=== PATIENT | male | born 1965 | race Caucasian/White ===

== ENCOUNTER → 2018-07-10 11:38 | Outpatient (CLI) | payer BC, SELFPAY | PROVIDERS: Family Provider Family Medicine; PCP Family Medicine; Visit Provider Orthopaedic Surgery | DX: M79.641 Pain in right hand (principal) | CPT/HCPCS: 73130 ==

== ENCOUNTER → 2019-05-22 07:24 | Outpatient (CLI) | payer BC, SELFPAY ==
[2019-05-22 08:12] LABS: Anion Gap 6 (5-15); BUN 21 mg/dL (7-18); BUN/Creat Ratio 16.7 RATIO (10-20); Calcium,Total 8.4 mg/dL (8.5-10.1); Chloride 110 mmol/L (98-107); Cholesterol 174 mg/dL (200); Creatinine, Serum 1.26 mg/dL (0.70-1.30); EST Glomerular Filtration Rate 63 mL/min (>60); Est Glom Filt Rate - Afr Amer 77 mL/min (>60); Glucose 93 mg/dL (74-106); High Density Lipoprotein 39 mg/dL; PSA,Total - Annual Screen 0.84 ng/mL (0.00-4.00); Potassium 4.3 mmol/L (3.5-5.1); Sodium Level 145 mmol/L (136-145); Triglycerides 96 mg/dL; Very Low Density Lipoprotein 19 mg/dL (5-40)
== END ==
PROVIDERS: Family Provider Family Medicine; PCP Family Medicine; Referring Provider Family Medicine; Visit Provider Family Medicine
DX: Z13.220 Encounter for screening for lipoid disorders (principal); Z13.1 Encounter for screening for diabetes mellitus; Z12.5 Encounter for screening for malignant neoplasm of prostate
CPT/HCPCS: 36415; 80048; 80061; 84153; G0103

== ENCOUNTER → 2021-05-04 09:50 | Outpatient (CLI) | payer BC, SELFPAY ==
--- NOTE | 2021-05-04 09:55 | RAD_ITS ---
STUDY: X-RAY - RIGHT WRIST REASON FOR EXAM: Male, 55 years old. WRIST AND FOREARM PAIN TECHNIQUE: 3 view(s) of the wrist were obtained. COMPARISON: None. FINDINGS: Normal visualized distal radius and ulna. Normal radiocarpal articulation. Normal distal radioulnar articulation. Normal carpal bones. Normal carpal articulations. Normal carpometacarpal articulation of the thumb. Normal second through fifth carpometacarpal articulations. Normal visualized metacarpal bones. The soft tissue structures are unremarkable. RAD/Wrist min 3 Views IMPRESSION: Normal x-ray examination of the wrist. Electronically Signed: Jack Cardona MD at 13:07 EDT , Service support ,
[2021-05-04 12:22] LABS: Absolute Lymphocyte Count 0.91 X10^3/uL (0.83-4.51); Absolute Neutrophil Count 2.3 X10^3/uL (2.0-7.7); Basophil# 0.04 X10^3/uL; Eosinophil# 0.17 X10^3/uL; Eosinophils% 4.4 % (0-5); Hemoglobin 15.1 g/dL (13.0-16.5); Lymphocyte # 0.91 X10^3/ul (0.83-4.51); Lymphocyte % 23.5 % (19-41); Mean Corp Hgb Conc 33.6 g/dL (32-36); Mean Corpuscular Hgb 30.5 pg (27.0-32.0); Mean Corpuscular Volume 90.9 fL (80-94); Mean Platelet Vol. 10.7 fl (6.2-12.0); Monocyte# 0.39 X10^3/uL; Monocyte% 10.1 % (0-10); NRBC Flagged by Analyzer 0 % (0-5); Neutrophil # 2.32 X10^3/uL (2.7-7.7); Platelet Count 218 K/mm3 (150-450); RBC Distribution Width CV 11.9 % (11.6-14.6); RBC Distribution Width SD 39.5 fl (35.1-43.9); Red Blood Count 4.95 M/mm3 (4.6-6.2); White Blood Count 3.9 K/mm3 (4.4-11.0)
[2021-05-04 12:53] LABS: ALB/GLOB Ratio 1.2 RATIO (0.9-2.4); AST(SGOT) 24 U/L (15-37); Alanine Aminotransfer ALT/SGPT 34 U/L (16-61); Albumin, Serum 3.9 g/dL (3.2-5.0); Alkaline Phosphatase 79 U/L (45-117); Anion Gap 6 (5-15); BUN 26 mg/dL (7-18); BUN/Creat Ratio 17.8 RATIO (10-20); Calcium,Total 8.6 mg/dL (8.5-10.1); Chloride 105 mmol/L (98-107); Cholesterol 206 mg/dL (200); Creatinine, Serum 1.46 mg/dL (0.70-1.30); EST Glomerular Filtration Rate 53 mL/min (>60); Est Glom Filt Rate - Afr Amer 64 mL/min (>60); Globulin 3.2 g/dL (2.2-4.2); Glucose 81 mg/dL (74-106); High Density Lipoprotein 43 mg/dL; PSA,Total - Annual Screen 1.03 ng/mL (0.00-4.00); Potassium 4.2 mmol/L (3.5-5.1); Protein, Total 7.1 g/dL (6.4-8.2); Sodium Level 140 mmol/L (136-145); Triglycerides 104 mg/dL; Very Low Density Lipoprotein 21 mg/dL (5-40)
== END ==
PROVIDERS: PCP Family Medicine; Referring Provider Family Medicine; Visit Provider Family Medicine
DX: Z00.00 Encounter for general adult medical examination without abnormal findings (principal); Z12.5 Encounter for screening for malignant neoplasm of prostate; M25.531 Pain in right wrist
CPT/HCPCS: 36415; 73110; 80053; 80061; 84153; 85025; G0103

== ENCOUNTER → 2022-06-18 | Outpatient (CLI) | payer BC, SELFPAY ==
--- NOTE | 2022-06-18 14:45 | RAD_ITS ---
EXAM: XR CHEST, 2 VIEWS CLINICAL INDICATION: DYSPNEA, CHEST TIGHTNESS TECHNIQUE: Frontal and lateral views of the chest. This report was created using [employer] report generation technology. COMPARISON: 08/10/2012 FINDINGS: LUNGS AND PLEURAL SPACES: Unremarkable. No consolidation or edema. No pneumothorax. No effusion. HEART: Unremarkable. Cardiac silhouette not enlarged. MEDIASTINUM: Central airways and mediastinal contour are unremarkable. BONES/JOINTS: Unremarkable. SOFT TISSUES: Unremarkable. RAD/Chest PA and Lateral IMPRESSION: No radiographic evidence of acute cardiopulmonary disease. Electronically Signed: Rodríguez Altamirano MD at 3:02 EDT ,
[2022-06-18 18:11] LABS: Absolute Neutrophil Count 3.2 X10^3/uL (2.0-7.7); Basophil# 0.05 X10^3/uL; Eosinophil# 0.19 X10^3/uL; Eosinophils% 3.8 % (0-5); Hematocrit 44.2 % (40-54); Hemoglobin 15.1 g/dL (13.0-16.5); Lymphocyte % 20.1 % (19-41); Mean Corp Hgb Conc 34.2 g/dL (32-36); Mean Corpuscular Hgb 31.7 pg (27.0-32.0); Mean Corpuscular Volume 92.7 fL (80-94); Monocyte# 0.45 X10^3/uL; NRBC Flagged by Analyzer 0 % (0-5); Neutrophil # 3.23 X10^3/uL (2.7-7.7); Neutrophil % 64.9 % (47-70); Platelet Count 192 K/mm3 (150-450); RBC Distribution Width CV 11.7 % (11.6-14.6); RBC Distribution Width SD 39.6 fl (35.1-43.9); Red Blood Count 4.77 M/mm3 (4.6-6.2)
[2022-06-18 18:38] LABS: D-Dimer Quantitative (DVT/PE) < 0.27 FEU/ug/m (0.27-0.49)
[2022-06-18 18:58] LABS: ALB/GLOB Ratio 1.2 RATIO (0.9-2.4); AST(SGOT) 19 U/L (15-37); Alanine Aminotransfer ALT/SGPT 32 U/L (16-61); Albumin, Serum 3.7 g/dL (3.2-5.0); Alkaline Phosphatase 75 U/L (45-117); Anion Gap 5 (5-15); BUN 33 mg/dL (7-18); BUN/Creat Ratio 21.4 RATIO (10-20); Chloride 104 mmol/L (98-107); Creatinine, Serum 1.54 mg/dL (0.70-1.30); EST Glomerular Filtration Rate 50 mL/min (>60); Est Glom Filt Rate - Afr Amer 60 mL/min (>60); Globulin 3.1 g/dL (2.2-4.2); Glucose 123 mg/dL (74-106); Potassium 4.1 mmol/L (3.5-5.1); Protein, Total 6.8 g/dL (6.4-8.2); Sodium Level 136 mmol/L (136-145); T4 Free Direct 0.88 ng/dL (0.76-1.46); Thyroid Stim Hormone (TSH) 1.94 uIU/mL (0.358-3.74)
== END | disposition home or self-care (01) ==
LOC: MTLAB 14:43
PROVIDERS: PCP Family Medicine; Referring Provider Family Medicine; Visit Provider Family Medicine
DX: R06.00 Dyspnea, unspecified (principal); R07.9 Chest pain, unspecified; R53.83 Other fatigue
CPT/HCPCS: 36415; 71046; 80053; 83880; 84439; 84443; 85025; 85379

== ENCOUNTER → 2022-07-04 | Outpatient (CLI) | payer BC, SELFPAY ==
--- NOTE | 2022-07-04 13:34 | STE_ITS ---
Reason For Study: Chest Pain Stress Results Protocol: Stress Echocardiogram-[place]on Maximum Predicted HR: 163 bpm Target HR: 139 bpm % Maximum Predicted HR: 85 % Heart Stage Duration Rate BP Comment (mm:ss) (bpm) Baseline 48 122/82Pt complains of a constant left sided chest tightness rated 4/10 Stage 1 3:00 97 140/70patient complains of left sided chest tightness 4/10 Stage 2 3:00 125 176/80Patient complains of left sided chest tighness 4/10 Patient complains of left sided chest tightness that radiates up the Stage 3 1:55 139 192/88left side of his neck, and lightheadedness Recovery 75 142/82Patient complains of left sided chest tightness 4/10 Stress Duration: 7:55 mm:ss Maximum Stress HR: 139 bpm Baseline Echocardiogram Findings The estimated ejection fraction is 65 %. Post-stress EF is 75%. Stress Echo Wall motion Data Resting WM Intermediate WM Stress WM Resting Wall Motion Wall Motion Stress No regional wall motion No regional wall motion abnormalities noted. abnormalities noted. EKG Data The baseline ECG displays normal sinus rhythm. No significant ischemic EKG changes. Symptoms with Stress The patient experinced No chest pain . ECHO/Stress Test Echo w/o Contrast Interpretation Summary The estimated ejection fraction is 65 %. Stress echocardiogram is negative for exercise-induced chest pain or EKG or ech ocardiographic changes of ischemia. Functional capacity is normal for age Ordering Physician: Ben Covarrubias Referring Physician: Ben Covarrubias Performed By: Alexandrea River RDCS
== END | disposition home or self-care (01) ==
PROVIDERS: PCP Family Medicine; Referring Provider Family Medicine; Visit Provider Family Medicine
DX: R07.9 Chest pain, unspecified (principal)
CPT/HCPCS: 93017; 93350

== ENCOUNTER → 2022-07-12 | Outpatient (CLI) | payer BC, SELFPAY ==
--- NOTE | 2022-07-12 10:15 | PFTCOMP ---
COMPLETE PULMONARY FUNCTION TEST INTERPRETATION Brief HPI: Patient is a 56-year-old male, currently under the care of Dr. Covarrubias, who presents to [facility] for complete pulmonary function tests secondary to diagnosis of dyspnea. Respiratory therapist reports good effort and reproducible results. Interpretation: Forced expiration spirometry shows no large airways obstructive ventilatory defect with an FEV1 of 103% predicted. There is no significant bronchodilator response by strict ATS criteria. Spirograms are of good quality and plateau normally. The respiratory flow volume loop shows a normal pattern. Lung volumes by body plethysmography show a normal total lung capacity at 7.49 L, 112% predicted. All other lung volumes are within normal limits. Diffusion capacity by carbon monoxide is normal at 107% predicted. The airway resistance is normal. No previous pulmonary function tests were available for review. Impression: Pulmonary function tests are within normal limits. Consider bronchoprovocation study if asthma is a consideration
== END | disposition home or self-care (01) ==
PROVIDERS: PCP Family Medicine; Referring Provider Family Medicine; Visit Provider Family Medicine
DX: R06.02 Shortness of breath (principal)
CPT/HCPCS: 94060; 94726; 94729

== ENCOUNTER → 2022-12-04 | Outpatient (CLI) | payer BC, SELFPAY ==
--- NOTE | 2022-12-04 09:45 | RAD_ITS ---
STUDY: X-RAY - LUMBAR SPINE REASON FOR EXAM: Male, 56 years old. Lumbar spine pain with right sided radiculopathy. TECHNIQUE: 4 view(s) of the lumbar spine were obtained. COMPARISON: None FINDINGS: Normal lumbar lordosis. There is no substantial scoliosis. There is anterolisthesis of L5 on S1. The alignment is otherwise preserved. Normal vertebral bodies and endplates. Normal disc space heights. There is no demonstrated fracture. There is bilateral pars defects at the L5-S1 level. The soft tissue structures are unremarkable. RAD/L/S Spine Min 4 Views IMPRESSION: Spondylolisthesis at L5-S1. Electronically Signed: Adan Barbosa DO at 17:47 EST ,
== END | disposition home or self-care (01) ==
PROVIDERS: PCP Family Medicine; Referring Provider Family Medicine; Visit Provider Family Medicine
DX: M43.17 Spondylolisthesis, lumbosacral region (principal); M54.17 Radiculopathy, lumbosacral region
CPT/HCPCS: 72110

== ENCOUNTER 2023-02-21 08:00 | Outpatient (RCR) | payer BC, SELFPAY ==
--- NOTE | 2022-12-09 11:01 | HP.PTEVAL ---
Patient's Visit Information NORMA KAPADIA is a 56 year old M referred to Physical Therapy by Dr. Ben Covarrubias DO with a diagnosis of LUMBAR PAIN. Date of Evaluation: 12/09/22 Physical Therapist: Arti Johnston PT, Cert MDT - Visit Plan Frequency: 2-3x /Week Duration: 4-6 Weeks Plan: *Spondylolisthesis at L5-S1 and Harriett LE Sx's.*. Trial of Aquatic Therapy starting slow and with neutral spine only. Monitor LE Sx's. Posture Correction/Strengtheing, DLS and Harriett LE ROM, Stretching and Strengthening. HEP Inst. Change to land PT if unable to avoid peripheralization. - Subjective Work/Leisure: RETIRED. Disability: NO. Present symptoms: R LOW BACK PAIN WITH INTERMITTENT RIGHT POSTERIOR THIGH PAIN. INTERMITTENT R CALF TIGHTNESS AND SOMETIMES FEET FEEL WARM. INTERMITTENT L TOE TINGLING AND MILD L CALF TINGLING. Present since: ABOUT 20 YEARS AGO - COMES AND GOES. THIS EPISODE STARTED 3-4 MO AGO. Pain Scale: WORST 7/10, LEAST 1/10. Currently: 1/10. Is it getting better, worse or staying the same: STAYING THE SAME AND MAYBE GETTING WORSE. Commenced as a result of: NO APPARENT REASON. Symptoms at onset: R LBP AND RIGHT THIGH PAIN. Worse: LYING DOWN, SITTING, LIFTING. Better: CHANGE OF POSITION, MEDICINE - gabapentin. Disturbed sleep: YES. Previous history/Previous treatment: CHIROPRACTIC WITH LAST TREATMENT BEING 2-3 WKS AGO WITH 1-2 DAYS OF RELIEF ALONG WITH MASSAGE. NO SPENCER. NO LUMBAR SURGERY. NO PHYSICAL THERAPY. Treatment this episode: Gabapentin. Coughing/sneezing/straining: POSITIVE. Gait: CAUSING LIMPING ON R LE AND R KNEE GETS SORE. Bowel or Bladder Dysfunction: NO. Accidents: FELL OFF ROOF AND LANDED ON FEET ABOUT 20 YEARS AGO. Unexplained weight loss: NO. Imaging: RECENT LUMBAR X-RAY SHOWING PREVIOUS STRESS FX'S OF L4 AND S1 AND SOME LIPPAGE PER PATIENT REPORT. ABLE TO FIND X-RAY REPORT IN [facility] EMR: STUDY: X-RAY - LUMBAR SPINE. REASON FOR EXAM: Male, 56 years old. Lumbar spine pain with right sided. radiculopathy. TECHNIQUE: 4 view(s) of the lumbar spine were obtained. COMPARISON: None. . FINDINGS: Normal lumbar lordosis. There is no substantial scoliosis. There is. anterolisthesis of L5 on S1. The alignment is otherwise preserved. Normal vertebral bodies and endplates. Normal disc space heights. There. is no demonstrated fracture. There is bilateral pars defects at the L5-S1. level. The soft tissue structures are unremarkable. . RAD/L/S Spine Min 4 Views. IMPRESSION: Spondylolisthesis at L5-S1. . Electronically Signed: Adan Barbosa DO. . PMH/Recent major surgery: CERVICAL FUSION [id number], H/O KIDNEY STONES, MIGRAINES. OTHER: PATIENT REPORTS DR. COVARRUBIAS TOLD HIM IF PT DOESN'T WORK HE MIGHT NEED AN MRI AND SURGERY. - Objective Sitting/Standing Posture: FAIR. NORMAL TO MILDLY INCREASED LUMBAR LORDOSIS. NO RELEVANT LATERAL SHIFT. Active Correction of posture: BETTER. SLOUCHING IN STANDING AND SITTING PERIPHERALIZES SX;S IN HARRIETT LE'S. Other Observations: INDEP GAIT INTO PT WITHOUT ANY ASSISTIVE DEVICES OR LOB BUT MILD RIGHT LE LIMP. NO LOB. INDEP TRANSFER SIT TO STAND WITHOUT UE ASSIST. STANDING STILL X 2 MIN PRODUCES L CALF AND TOE TINGLING. Sensory deficit: DECREASED LIGHT TOUCH SENSATION RIGHT ANTERIOR TIB REGION COMPARED TO LEFT. ROM deficit: MILD HARRIETT LE HS AND GASTROC SOLEUS TIGHTNESS. Motor deficit: HARRIETT HIPS 4-/5, KNEES AND ANKLES 5/5. Reflexes: R QUAD ABSENT. 2/3 L QUAD AND HARRIETT ACHILLES. Dural Signs: POSITIVE HARRIETT LE'S. Lumbar mvmt loss: flex - MIN TO MOD - PODUCES PULLING IN R THIGH AND L CALF. ext - NT. R SG - MOD. L SG - MOD. Core strength: Palpation: NO ACUTE LUMBAR TENDERNESS BUT INCREASED MUSCLE TONE OF PARASPINALS. TREATMENT: NEUROMUSCULAR REEDUCATION - RETRAINING OF MVMT AND POSTURE FOR SITTING, LYING AND STANDING ACTIVITIES. - Balance/Special Test Scores Oswestry Low Back Score: 20 - Goals Goal 1:: DECREASE C/O LOW BACK AND HARRIETT LE SX'S. Goal Time Frame: 4-6 Weeks Goal 2:: IMPROVE PERSONAL CARE, LIFTING, SITTING, STANDING, SLEEP, SOCIAL LIFE, TRAVEL AND HOMEMAKING FUNCTION Goal Time Frame: 4-6 Weeks Goal 3:: INSTRUCT IN PROPHYLAXIS Goal Time Frame: 4-6 Weeks - Anticipated Interventions Patient/Client Instruction: Educate patient on: Condition, Plan of Care, Risk Factors For the Purpose of:: To improve self management Therapeutic Exercise to Include: Strength training, Body mechanics, Postural training, Flexibilty training, Gait and locomotor training, Neuromotor development, In an aquatic setting, Dynamic Lumbar Stabilization For the Purpose of:: To decrease pain, To improve muscle performance and motor function, To increase tolerance to activity/condition/position, To improve ability of physical actions for home/community/work/leisure, To improve gait and locomotor functions TENS: Yes IF ES: Yes Cryotherapy (ice pack, ice massage): Yes Thermo therapy (hot pack): Yes Ultrasound (thermal/non thermal): Yes For the Purpose of:: To decrease pain, To improve nutrient delivery to tissue Thank you for the opportunity to evaluate your patient. For Medicare and Medicare HMO plans, please review the plan of care and approve it. It will need to be FAXED BACK to us at [phone] for Medicare purposes. For Medicare only, by signing this I certify the plan of care. Please let me know if there are questions or concerns regarding this plan of care. Physician Signature: Date:
--- NOTE | 2023-01-01 08:50 | HP.PTREVAL_ITS ---
Dr. Ben Covarrubias, DO, It has been my pleasure to treat NORMA KAPADIA over the last 10 visits for LUMBAR PAIN. Please see the progress note below for an update on the physical therapy plan of care! Subjective: PATIENT REPORTS HE WAS 75-80% BETTER AND NOT GETTING ANYTHING RADIATING DOWN HIS LEGS AND JUST 1-2/10 R LOW BACK PAIN UNTIL HE SAT FOR ABOUT 3 HOURS AT A MEETING Friday12/28/22. HE STARTED GETTING STABBING PAINS BEHIND R KNEE WHILE SITTING AND THEN EVERY 3-5 MINUTES X 24 HOURS BEORE IT WENT AWAY. AFTER THE MEETING HE DROVE DOWN TO [place] AND BACK THE NEXT DAY. R LEG PAIN WENT AWAY FRIDAY AND WAS GONE UNTIL DRIVING 15 MIN INTO PT TODAY. CURRENTLY PATIENT REPORTS HIS WHOLE R LEG FEELS WARM COMPARED TO THE LEFT AND THE PAIN IS RADIATING FROM HIS R LB DOWN THE OUTSIDE OF HIS THIGH TO HIS KNEE. Objective/Function: PATIENT WAS SEEN TODAY FOR RE-ASSESSMENT OF PROGRESS TOWARD THE SET PT GOALS AND THE NEED FOR FURTHER PHYSICAL THERAPY VS READINESS FOR DISCHARGE. PATIENT APPEARS TO BE A GOOD CANDIDATE TO CONTINUE AQUATIC THERAPY BASED ON PROGRESS MADE AND ROOM FOR FURTHER IMPROVEMENT. HE HAD A SET BACK A BOUT 4 DAYS AGO THAT APPEARS TO BE DUE TO PROLONGED SITTING. HIS BACK ROM IS BETTER NOW COMPARED TO INITIAL EVAL AND HIS DURAL SIGNS WERE POSITIVE AT EVAL BUT NEGATIVE TODAY HOWEVER WE HAVE TRIED TO MAINTAIN NEUTRAL SPINE WITH PT AND NOT EVEN TESTED LUMBAR EXTENSION YET. WOULD RECOMMEND PHYSICIAN RE-ASSESSMENT AT THIS POINT DUE TO ONGOING LE SX'S AND PATIENT IS AGREEABLE. UPON EXAM TODAY: INDEP GAIT AND TRANSFERS WITH NO GROSS DEVIATIONS NOTED. Sensory deficit: HYPERSENSATIVITY OF RIGHT LATERAL THIGH AND LEG COMPARED TO LEFT. ROM deficit: MILD HARRIETT LE HS AND GASTROC SOLEUS TIGHTNESS. Motor deficit: HARRIETT HIPS 4-/5, KNEES AND ANKLES 5/5. Reflexes: R QUAD ABSENT. 2/3 L QUAD AND HARRIETT ACHILLES. Dural Signs: NEGATIVE HARRIETT LE'S. Lumbar mvmt loss: flex - NIL. PATIENT ONLY REPORTS HARRIETT HS STRETCHING FEELING IN HARRIETT POST THIGHS AND NO PAIN WITH FLEX. ext - NT. R SG - MIN. L SG - MIN. CORE STRENGTH: FAIR. [ End ] Plan Plan: CONT PT 3X'S A WK X 3-4 WKS IF ORDER TO CONTINUE RECEIVED BY DR. COVARRUBIAS. *Spondylolisthesis at L5-S1 and Harriett LE Sx's.*. Aquatic Therapy starting slow and with neutral spine only. Monitor LE Sx's. Posture Correction/Strengtheing, DLS and Harriett LE ROM, Stretching and Strengthening. HEP Inst. Balance/Gait/Functional tests - Balance/Special Test Scores Oswestry Low Back Score: 15 Goals Goal 1:: DECREASE C/O LOW BACK AND HARRIETT LE SX'S. Goal Time Frame: 4-6 Weeks Goal Progress: Progressing Goal 2:: IMPROVE PERSONAL CARE, LIFTING, SITTING, STANDING, SLEEP, SOCIAL LIFE, TRAVEL AND HOMEMAKING FUNCTION Goal Time Frame: 4-6 Weeks Goal Progress: Progressing Goal 3:: INSTRUCT IN PROPHYLAXIS Goal Time Frame: 4-6 Weeks Goal Progress: Progressing Anticipated Interventions Patient/Client Instruction: Educate patient on: Condition, Plan of Care, Risk Factors For the Purpose of:: To improve self management Therapeutic Exercise to Include: Strength training, Body mechanics, Postural training, Flexibilty training, Gait and locomotor training, Neuromotor development, In an aquatic setting, Dynamic Lumbar Stabilization For the Purpose of:: To decrease pain, To improve muscle performance and motor function, To increase tolerance to activity/condition/position, To improve ability of physical actions for home/community/work/leisure, To improve gait and locomotor functions TENS: Yes IF ES: Yes Cryotherapy (ice pack, ice massage): Yes Thermo therapy (hot pack): Yes Ultrasound (thermal/non thermal): Yes For the Purpose of:: To decrease pain, To improve nutrient delivery to tissue Please do not hesitate to contact me at [phone] by phone or if you have questions or concerns regarding this new plan of care! Sincerely, Arit Johnston, PT, Cert MDT
--- NOTE | 2023-01-14 10:57 | HP.PTREVAL_ITS ---
Dr. Ben Covarrubias, DO, It has been my pleasure to treat NORMA KAPADIA over the last 11 visits for LUMBAR PAIN. Please see the progress note below for an update on the physical therapy plan of care! Subjective: SEE NOTE FROM DR. COVARRUBIAS SCANNED IN [facility] - [place] TO RESUME AQUATIC THERAPY WHILE AWAITING MRI. TODAY HAVING TINGLING ALONG INSIDE OF LOWER LEG. NO BACK AND NO LEG PAIN. NO APPARENT WEAKNESS. PATIENT REPORTS HIS PAIN HAS IMPROVED SINCE LAST VISIT BUT NOT BACK TO WHERE HE WAS BEFORE THE FLARE UP. STATES HE IS DEFINATELY BETTER THAN BEFORE STARTING PT AND FEELS THE THERAPY WAS HELPING. WANTS TO RESUME AQUATIC THERAPY. Objective/Function: UPON EXAM TODAY: INDEP GAIT AND TRANSFERS WITH NO GROSS DEVIATIONS NOTED. Sensory deficit: PATIENT REPORTS BEING ABLE TO FEEL MORE PRESSURE ON THE RIGHT LATERAL THIGH COMPARED TO THE LEFT AND MORE PRESSURE ON THE LEFT LOWER LEG COMPARED TO THE RIGHT WITH LIGHT TOUCH SENSATION TESTING TODAY. ROM deficit: MILD HARRIETT LE HS AND GASTROC SOLEUS TIGHTNESS. Motor deficit: HARRIETT HIPS 4-/5, KNEES AND ANKLES 5/5. Reflexes: R QUAD ABSENT. 2/3 L QUAD AND HARRIETT ACHILLES. Dural Signs: NEGATIVE HARRIETT LE'S. Lumbar mvmt loss: flex - NIL. PATIENT ONLY REPORTS HARRIETT HS STRETCHING FEELING IN HARRIETT POST THIGHS AND NO PAIN WITH FLEX. ext - NT. R SG - MIN. L SG - MIN. CORE STRENGTH: FAIR. PATIENT ABLE TO WALK ON TOES AND WALK ON HEELS WIHTOUT UE ASSIST. Plan Plan: CONT AQUATIC PT 3X'S A WK X 3-4 WKS. *Spondylolisthesis at L5-S1 and Harriett LE Sx's.*. Aquatic Therapy starting slow and with neutral spine only. Monitor LE Sx's. Posture Correction/Strengtheing, DLS and Harriett LE ROM, Stretching and Strengthening. HEP Inst. Balance/Gait/Functional tests - Balance/Special Test Scores Oswestry Low Back Score: 9 Goals Goal 1:: DECREASE C/O LOW BACK AND HARRIETT LE SX'S. Goal Time Frame: 4-6 Weeks Goal Progress: Progressing Goal 2:: IMPROVE PERSONAL CARE, LIFTING, SITTING, STANDING, SLEEP, SOCIAL LIFE, TRAVEL AND HOMEMAKING FUNCTION Goal Time Frame: 4-6 Weeks Goal Progress: Progressing Goal 3:: INSTRUCT IN PROPHYLAXIS Goal Time Frame: 4-6 Weeks Goal Progress: Progressing Anticipated Interventions Patient/Client Instruction: Educate patient on: Condition, Plan of Care, Risk Factors For the Purpose of:: To improve self management Therapeutic Exercise to Include: Strength training, Body mechanics, Postural training, Flexibilty training, Gait and locomotor training, Neuromotor development, In an aquatic setting, Dynamic Lumbar Stabilization For the Purpose of:: To decrease pain, To improve muscle performance and motor function, To increase tolerance to activity/condition/position, To improve ability of physical actions for home/community/work/leisure, To improve gait and locomotor functions TENS: Yes IF ES: Yes Cryotherapy (ice pack, ice massage): Yes Thermo therapy (hot pack): Yes Ultrasound (thermal/non thermal): Yes For the Purpose of:: To decrease pain, To improve nutrient delivery to tissue Please do not hesitate to contact me at [phone] by phone or if you have questions or concerns regarding this new plan of care! Sincerely, Arti Johnston, PT, Cert MDT
--- NOTE | 2023-02-10 09:41 | HP.PTREVAL ---
Dr. Ben Covarrubias, DO, It has been my pleasure to treat NORMA KAPADIA over the last 17 visits for LUMBAR PAIN. Please see the progress note below for an update on the physical therapy plan of care! Subjective: I'VE HAD VIRTUALLY NO PAIN. MRI APPROVED AND originally SCHEDULED FOR FEBRUARY 05 [address] DR[address] COVARRUBIAS DELAYED IT DUE TO IMPROVEMENT AND NOW SCHEDULED FOR MAR 25 2023. PATIENT REPORTS THAT LONG HE CAN SHIFT WHEN SITTING AND SLEEPING HE CAN KEEP THE PAIN AWAY BUT IF HER CAN'T SHIFT HE GETS PAIN. NO PAIN RIGHT NOW BUT TINGLING R LATERAL LOWER LEG AND IT IS INTERMITTENT. NO LONGER HAVING ANY TINGLING L CALF OR TOE. R KNEE ISN'T GETTING SORE ANYMORE AND NO MORE LIMPING. Objective/Function: PATIENT WAS SEEN TODAY FOR RE-ASSESSMENT OF PROGRESS TOWARD THE SET PT GOALS AND THE NEED FOR FURTHER PHYSICAL THERAPY VS READINESS FOR DISCHARGE. PATIENT IS MAKING GREAT PROGRESS WITH PT AND IS INDEP WITH A POOL PROGRAM BUT LACKS KNOWLEDGE FOR APPROPRIATE LAND HEP. HE HAS SOME HOME GYM EQUIPMENT. HE IS APPROPRIATE TO CONTINUE PT BASED ON PROGRESS MADE AND ROOM FOR FURTHER IMPROVEMENT ALONG WITH PATIENT BEING APPROPRIATE TO TRANSITION FROM WATER TO LAND PT. PATIENT IS AGREEABLE. UPON EXAM TODAY: INDEP GAIT AND TRANSFERS WITH NO GROSS DEVIATIONS NOTED. Sensory deficit: HARRIETT LE LIGHT TOUCH SENSATION GROSSLY INTACT AND SYMMETRICAL. ROM deficit: WFL. Motor deficit: HARRIETT HIPS 5/5, KNEES AND ANKLES 5/5. Reflexes: R QUAD 1/3. 2/3 L QUAD AND HARRIETT ACHILLES. Dural Signs: NEGATIVE HARRIETT LE'S. Lumbar mvmt loss: flex - NIL. ext - MIN. R SG - MIN. L SG - MIN. CORE STRENGTH: FAIR. [ End ] Plan Plan: *Spondylolisthesis at L5-S1 and Harriett LE Sx's. * Monitor LE Sx's and avoid peripheralization of Sx's. HEP INSTRUCTION 2X'S A WK X 2-3 WKS. FOCUS ON CORE STABILITY WITH NEUTRAL SPINE. NO OVER HEAD PRESS. NO LEG PRESS WITH SHLD/UPPER BACK COMPRESSION. Postural Strengtheing, Harriett LE ROM, Stretching and Strengthening. HEP Inst. Balance/Gait/Functional tests - Balance/Special Test Scores Oswestry Low Back Score: 6 Goals Goal 1:: DECREASE C/O LOW BACK AND HARRIETT LE SX'S. Goal Time Frame: 4-6 Weeks Goal Progress: Progressing Goal 2:: IMPROVE PERSONAL CARE, LIFTING, SITTING, STANDING, SLEEP, SOCIAL LIFE, TRAVEL AND HOMEMAKING FUNCTION Goal Time Frame: 4-6 Weeks Goal Progress: Progressing Goal 3:: INSTRUCT IN PROPHYLAXIS Goal Time Frame: 4-6 Weeks Goal Progress: Progressing Anticipated Interventions Patient/Client Instruction: Educate patient on: Condition, Plan of Care, Risk Factors For the Purpose of:: To improve self management Therapeutic Exercise to Include: Strength training, Body mechanics, Postural training, Flexibilty training, Gait and locomotor training, Neuromotor development, In an aquatic setting, Dynamic Lumbar Stabilization For the Purpose of:: To decrease pain, To improve muscle performance and motor function, To increase tolerance to activity/condition/position, To improve ability of physical actions for home/community/work/leisure, To improve gait and locomotor functions TENS: Yes IF ES: Yes Cryotherapy (ice pack, ice massage): Yes Thermo therapy (hot pack): Yes Ultrasound (thermal/non thermal): Yes For the Purpose of:: To decrease pain, To improve nutrient delivery to tissue Please do not hesitate to contact me at [phone] by phone or if you have questions or concerns regarding this new plan of care! Sincerely, Arti Johnston, PT, Cert MDT
--- NOTE | 2023-02-21 08:52 | HP.PTDCSUM_ITS ---
It has been my pleasure to treat NORMA KAPADIA referred by Dr. Ben Covarrubias DO, with the diagnosis of LUMBAR PAIN for a total of 22 visit(s). Discharge Date: Please see the following information for a summary of their discharge status. Subjective: I HAVEN'T HAD ANYTHING RADIATING DOWN THE LEGS. MY BACK GETS SORE AND STIFF THOUGH. Overdid it yesterday, cutting firewood and having more stiffness today. PATIENT REPORTS HE FEELS HE CAN CONTINUE INDEP EX NOW. Lumbar Spine Pain Intensity (Out of 10): 1 R LATERAL THIGH Pain Intensity (Out of 10): 0 % Improvement: 90 Objective/Function: PATIENT WAS SEEN TODAY FOR RE-ASSESSMENT OF PROGRESS TOWARD THE SET PT GOALS AND THE NEED FOR FURTHER PHYSICAL THERAPY VS READINESS FOR DISCHARGE. PATIENT HAS MADE GREAT PROGRESS WITH PT AND IS INDEP WITH A POOL PROGRAM AND LAND HEP. HE IS APPROPRIATE FOR DISCHARGE AND AGREEABLE TO DISCHARGE. UPON EXAM TODAY: INDEP GAIT AND TRANSFERS WITH NO GROSS DEVIATIONS NOTED. Sensory deficit: HARRIETT LE LIGHT TOUCH SENSATION GROSSLY INTACT AND SYMM ETRICAL. ROM deficit: LE'S WFL. Motor deficit: HARRIETT HIPS 5/5, KNEES AND ANKLES 5/5. Reflexes: R QUAD 1/3. 2/3 L QUAD AND HARRIETT ACHILLES. Dural Signs: NEGATIVE HARRIETT LE'S. Lumbar mvmt loss: flex - NIL. ext - MIN. R SG - NIL. L SG - NIL. CORE STRENGTH: GOOD Goal 1:: DECREASE C/O LOW BACK AND HARRIETT LE SX'S. Goal Progress: Goal Met Goal 2:: IMPROVE PERSONAL CARE, LIFTING, SITTING, STANDING, SLEEP, SOCIAL LIFE, TRAVEL AND HOMEMAKING FUNCTION Goal Progress: Goal Met Goal 3:: INSTRUCT IN PROPHYLAXIS Goal Progress: Goal Met Plan: D/C If there are questions or concerns regarding this patient's physical therapy, please feel free to call me at [phone]. Thank you for the referral of this patient. Sincerely, Arti Johnston, PT, Cert MDT Balance/Gait/Functional tests - Balance/Special Test Scores Oswestry Low Back Score: 3
== END 2023-02-21 10:48 | disposition home or self-care (01) ==
LOC: PT 08:00
PROVIDERS: PCP Family Medicine; Referring Provider Family Medicine; Visit Provider Family Medicine
DX: M43.17 Spondylolisthesis, lumbosacral region (principal)
CPT/HCPCS: 97110; 97112; 97113; 97162; 97164

== ENCOUNTER → 2023-03-15 | Outpatient (CLI) | payer BC, SELFPAY ==
--- NOTE | 2023-03-15 07:40 | MRI_ITS ---
STUDY: MRI LUMBAR SPINE WITHOUT CONTRAST REASON FOR EXAM: Male, 57 years old. RT LUMBAR RADICULOPATHY TECHNIQUE: Standardized fat and water weighted pulse sequences were obtained in the sagittal and axial planes. COMPARISON: Lumbar spine radiographs 12/04/2022. FINDINGS: T10-T11: (Sagittal only). T10 is not included. Normal T11 superior endplate. Normal partially included disc space with normal hydration and morphology. Normal central canal. Bilateral intervertebral neural foramina are not included. T11-T12: (Sagittal only). Normal endplates. Normal disc height, hydration and morphology. Normal central canal and bilateral intervertebral neural foramina. T12-L1: Normal endplates. Normal disc height, hydration and morphology. Normal bilateral facet joints. Normal central canal and bilateral lateral recesses. Normal bilateral intervertebral neural foramina. Normal lumbar lordosis. There is no substantial scoliosis. Normal conus medullaris that terminates at the lower T12-L1 disc space level. L1-2: Normal endplates. Normal disc height, hydration and morphology. Normal bilateral facet joints. Normal central canal and bilateral lateral recesses. Normal bilateral intervertebral neural foramina. Small upper L2 benign vertebral body hemangioma. Small left posterior renal cyst is visible at this level. L2-3: Normal endplates. Normal disc height, hydration and morphology. Normal bilateral facet joints. Normal central canal and bilateral lateral recesses. Normal bilateral intervertebral neural foramina. L3-4: Normal endplates. Normal disc height, hydration and morphology. Normal bilateral facet joints. Normal central canal and bilateral lateral recesses. Normal bilateral intervertebral neural foramina. L4-5: Normal endplates. Normal disc height, hydration and morphology. Normal bilateral facet joints. Normal central canal and bilateral lateral recesses. Normal bilateral intervertebral neural foramina. L5-S1: Normal endplates. Mild disc space height narrowing with degenerative vacuum phenomenon. Grade 1 anterolisthesis of L5 on S1 secondary to bilateral L5 pars defects. Normal facet joints. Posterior midline cephalad disc extrusion is slightly eccentric to the left of midline. There is a very minimal if any ventral extradural defect due to presence of ventral epidural fat and the anterolisthesis of L5 on S1. Normal central canal and bilateral lateral recesses. Moderate stenosis of the right intervertebral neural foramen with suspicious impingement of the undersurface of the right L5 nerve. Moderately pronounced stenosis of the left intervertebral neural foramen with impingement of the undersurface of the left L5 nerve. Normal visualized sacral ala. Normal visualized paraspinous soft tissue structures. MRI/Spine Lumbar (Routine) IMPRESSION: 1. Grade 1 anterolisthesis of L5 on S1 secondary to bilateral L5 pars defects, posterior midline cephalad disc extrusion is slightly eccentric to the left of midline, moderately pronounced stenosis of the left intervertebral neural foramen with impingement of the left L5 nerve and moderate stenosis of the right intervertebral neural foramen with suspicious impingement in the undersurface of the right L5 nerve. 2. Small upper L2 benign vertebral body hemangioma. Electronically Signed: Miguelito Muller MD at 15:49 EDT ,
== END | disposition home or self-care (01) ==
LOC: MRI 07:37
PROVIDERS: PCP Family Medicine; Referring Provider Family Medicine; Visit Provider Family Medicine
DX: M54.17 Radiculopathy, lumbosacral region (principal); R29.2 Abnormal reflex
CPT/HCPCS: 72148

== ENCOUNTER → 2024-01-21 | Outpatient (CLI) | payer BC, SELFPAY ==
--- NOTE | 2024-01-21 09:47 | RAD_ITS ---
INDICATION: PERSISTENT COUGH EXAMINATION/TECHNIQUE: X-RAY - XR Chest 2 Views COMPARISON: June 18, 2022 FINDINGS: LINES/DEVICES: None. LUNGS: No consolidation, edema or effusion. No pneumothorax. MEDIASTINUM AND CARDIOVASCULAR STRUCTURES: Cardiac silhouette not enlarged. Central airways and mediastinal contour are unremarkable. BONES AND SOFT TISSUES: Unremarkable. RAD/Chest PA and Lateral IMPRESSION: No radiographic evidence of acute cardiopulmonary disease. Electronically Signed: Layla Gutiérrez MD at 19:16 EST ,
--- OUTSIDE RECORDS SUMMARY | 2024-01-21 10:38 | XMS RPT_ITS | CCD ---
Author Name Unknown Address [address] [place] [address] Organization [facility] Care Team Providers Care Rn Diabetes Educator Name Role Phone Warner Hopkins MD Primary Care Provider Medications Current Medications Medication Drug Class(es) Dates Sig (Normalized) Sig (Original) predniSONE 20 mg oral tablet (1 source) Start: 10-22-2023 End: 10-27-2023 take 2 tablets by mouth once daily predniSONE (DELTASONE) 20 mg tablet Indications: Sore throat Take 2 tablets by mouth once daily for 5 days. 10 tablet 0 10/22/2023 10/27/2023 Active Completed/Discontinued Medications Medication Drug Class(es) Dates Sig (Normalized) Sig (Original) cetirizine hydrochloride 10 mg oral tablet (1 source) Histamine-1 Receptor Antagonist Start: 02-22-2008 cetirizine hcl(ZYRTEC 10 MG TAB) Take one(1) tablet daily. 0 02/22/2008 Active Problems Active Problems Problem Classification Problem Date Documented Da te Episodic/Chronic Other upper respiratory infections (1 source) Sore throat symptom; Translations: [Acute pharyngitis, unspecified] 10-22-2023 Episodic Past or Other Problems Problem Classification Problem Date Documented Da te Episodic/Chronic Calculus of urinary tract (1 source) Ureteric stone; Translations: [Calculus of ureter] Onset: 02-22-2008 02-22-2008 Episodic Results Test Name Value Interpretation Reference Range Facil ity Vital Signs Date Time Vital Sign Value Performing Clinician Facronald lity 10-22-2023 17:12-0500 Body temperature 98.29 [degF] Blayne Sierra APRN.CARD MAKER Work Phone: [facility] 10-22-2023 17:12-0500 Body weight 91.17 kg Blayne Sierra APRN.CARD MAKER Work Phone: [facility] 10-22-2023 17:12-0500 Diastolic blood pressure 84 mm[Hg] Blayne Sierra LABORATORY ANIMAL CARE VETERINARIAN.CARD MAKER Work Phone: [facility] 10-22-2023 17:12-0500 Heart rate 70 /min Blayne Sierra LABORATORY ANIMAL CARE VETERINARIAN.CARD MAKER Work Phone: [facility] 10-22-2023 17:12-0500 Respiratory rate 16 /min Blayne Sierra LABORATORY ANIMAL CARE VETERINARIAN.CARD MAKER Work Phone: [facility] 10-22-2023 17:12-0500 SaO2% (BldA) [Mass fraction] 100 % Blayne Sierra LABORATORY ANIMAL CARE VETERINARIAN.CARD MAKER Work Phone: [facility] 10-22-2023 17:12-0500 Systolic blood pressure 132 mm[Hg] Blayne Sierra LABORATORY ANIMAL CARE VETERINARIAN.CARD MAKER Work Phone: [facility] Encounters Encounter Date Encounter Type Care Provider Facility Start: 10-22-2023 End: 10-22-2023 ambulatory WARNER JACOBSONEFFINGHAM Facility:[facility] Start: 10-22-2023 End: 10-22-2023 Patient encounter procedure Blayne Sierra APRN.CARD MAKER Work Phone: [facility] Procedures Date Procedure Procedure Detail Performing Clinician Start: 10-22-2023 STREP A MOLECULAR (POC) [facility] Provider Plan of Treatment Date Care Activity Detail Author Start: 07-25-2023 Covid-19 Vaccine ( season) Covid-19 Vaccine () [facility] Start: 07-25-2023 Influenza vaccination Influ[facility] Start: 11-24-2022 Depression Assessment Depression Assessment [facility] Start: 2019 Prostate Cancer Screening Discussion Prostate Cancer Screening Discussion [facility] Start: 2009 Cologuard (FIT-DNA) Cologuard (FIT-DNA) [facility] Start: 2009 Colonoscopy Colonoscopy [facility] Start: 2009 Colorectal Cancer Screening Colorectal Cancer Screening [facility] Start: [address] Colonography [facility] Start: 2009 Diabetes Screening Diabetes Screening [facility] Start: 2009 Fecal Occult Blood Fecal Occult Blood [facility] Start: 2009 Sigmoidoscopy Sigmoidoscopy [facility] Start: 1999 Lipid 1996 panel - Serum or Plasma Lipid Screening [facility] Start: 1983 Urine microalbumin profile DTaP,Tdap,Td Vaccine (1 - Tdap) [facility] Start: 1982 Hepatitis C Screening Hepatitis C Screening [facility] Start: 1982 HIV Screening HIV Screening [facility] Start: 1964 Hepatitis B Vaccine (1 of 3 - 3-dose series) Hepatitis B Vaccine (1 of 3 - 3-dose series) [facility] ALERE STREP A TEST (AG) ALERE ST REP A TEST (AG) Lab Routine Sore throat Ordered: 10/22/2023 [facility] Work Phone: Immunizations Immunization Date Immunization Notes Care Provider Gene michelle 10-04-2022 influenza virus vacc ine, unspecified formulation Blayne Sierra APRN.CARD MAKER Work Phone: [facility] Payers Date Payer Category Payer Unknown [employer] PPO OOS [id number] 2016-Present [phone] [address] [place] [address] PPO [id number] 2016 Unknown [id number] Social History Date Type Detail Facility Start: 10-22-2023 Tobacco smoking stat us NCIS Never smoked tobacco [facility] Start: 10-22-2023 Tobacco use and exposure Smoke less tobacco non-user [facility] Start: 10-22-2023 Alcohol intake Current drinke r of alcohol (finding) [facility] Start: 10-22-2023 History of Social function [facility] Start: 10-22-2023 Tobacco use panel [facility] Start: 1965 Sex Assigned At Not on file [facility] Progress note 10-22-2023 Note Date & Type Note Facility 10-22-2023 Note HNO ID: [id number] Author: Blayne Sierra APRN.CARD MAKER Service: ? Author Type: Nurse Practitioner Type: Progress Notes Filed: 10/22/2023 5:57 PM Note Text: Subjective HPI HPI Norma Kapadia is a 57 year old male who presents today for CC of st, cough, congestion. This started 3 days ago. Has tried otc medication for relief. Symptoms are worsened by nothing. Risk factors sick exposures recently. .Patient presents with: Cough: Cough, congestion and drainage x 3 day PAST MEDICAL HISTORY Diagnosis Date SHERLYN (obstructive sleep apnea) 2008 cpap and then vpap - w/ benefit PAST SURGICAL HISTORY Procedure Laterality Date FOOT SURGERY HX Right 1997 big toe - dropped a board / pin placed PAST SURGICAL HISTORY OF 2007 2007 - s/p cervical fusion (ACDF) - helped w/ RUE symptoms. TONSILLECTOMY HX ALLERGIES Patient has no known allergies. MEDICATIONS ibuprofen (ADVIL) 200 mg tablet Take 200 mg by mouth every 6 hours as needed. multivitamins(DAILY MULTIVITAMIN TAB) Take one(1) tablet daily. COMPOUNDED PRESCRIPTION Glucosamine - once daily SUMAtriptan (IMITREX) 50 mg tablet TAKE 1 TAB EVERY DAY NEEDED FOR MIGRAINE MAY REPEAT 2HRS/ CONTINUED MIGRAINE NO MORE THAN 2/24HRS NAPROXEN SODIUM (ALEVE ORAL) Take by mouth as needed. (Patient not taking: Reported on 10/22/2023) cyclobenzaprine (FLEXERIL) 10 mg tablet Take 1 tablet by mouth once daily as needed. (Patient not taking: Reported on 10/22/2023) cetirizine hcl(ZYRTEC 10 MG TAB) Take one(1) tablet daily. (Patient not taking: Reported on 10/22/2023) No family history on file. Social History Tobacco Use Smoking status: Never Smokeless tobacco: Never Substance Use Topics Alcohol use: Yes Comment: 1 beer every 2-3 weeks Drug use: No Review of Systems Constitutional: Negative for fever. HENT: Positive for congestion and sore throat. Negative for ear pain and nosebleeds. Respiratory: Positive for cough. Negative for shortness of breath and wheezing. Musculoskeletal: Negative for neck pain. Objective Blood pressure 132/84, pulse 70, temperature 36.8 ?C (98.3 ?F), temperature source Tympanic, resp. rate 16, weight 91.2 kg (201 lb), SpO2 100 %. Physical Exam Constitutional: General: He is not in acute distress. Appearance: He is not toxic-appearing or diaphoretic. HENT: Head: Normocephalic and atraumatic. Nose: Nose normal. Mouth/Throat: Pharynx: Uvula midline. No pharyngeal swelling, oropharyngeal exudate, posterior oropharyngeal erythema or uvula swelling. Eyes: General: Lids are normal. No scleral icterus. Right eye: No discharge. Left eye: No discharge. Conjunctiva/sclera: Conjunctivae normal. Pupils: Pupils are equal, round, and reactive to light. Neck: Trachea: Trachea normal. Cardiovascular: Rate and Rhythm: Normal rate and regular rhythm. Heart sounds: Normal heart sounds. Pulmonary: Effort: Pulmonary effort is normal. Breath sounds: Normal breath sounds. Musculoskeletal: Cervical back: Normal range of motion and neck supple. Lymphadenopathy: Cervical: No cervical adenopathy. Right cervical: No superficial cervical adenopathy. Left cervical: No superficial cervical adenopathy. Skin: Findings: No rash. Neurological: Mental Status: He is alert and oriented to person, place, and time. ASSESSMENT/PLAN: 1. Sore throat - ICD9: 462, ICD10: J02.9 - suspect viral - Group A strep molecular testing negative - Discussed supportive care treatment with fluids, rest and analgesia. - The patient should follow up in 3-5 days if symptoms persist or worsen - ALERE STREP A TEST (AG) - PREDNISONE 20 MG TABLET - LIDOCAINE HCL 2 % MUCOSAL SOLUTION Blayne Sierra APRN.CANDACE [facility] History of Present illness Narrative 10-22-2023 Blayne Sierra APRN.CANDACE - 10/22/2023 5:15 PM EST Note Date & Type Note Facility 10-22-2023 History of Presen t illness Narrative Subjective HPI HPI Norma Kapadia is a 57 year old male who presents today for CC of st, cough, congestion. This started 3 days ago. Has tried otc medication for relief. Symptoms are worsened by nothing. Risk factors sick exposures recently. .Patient presents with: Cough: Cough, congestion and drainage x 3 day PAST MEDICAL HISTORY Diagnosis Date SHERLYN (obstructive sleep apnea) 2008 cpap and then vpap - w/ benefit PAST SURGICAL HISTORY Procedure Laterality Date FOOT SURGERY HX Right 1998 big toe - dropped a board / pin placed PAST SURGICAL HISTORY OF 2007 2007 - s/p cervical fusion (ACDF) - helped w/ RUE symptoms. TONSILLECTOMY HX ALLERGIES Patient has no known allergies. MEDICATIONS ibuprofen (ADVIL) 200 mg tablet Take 200 mg by mouth every 6 hours as needed. multivitamins(DAILY MULTIVITAMIN TAB) Take one(1) tablet daily. COMPOUNDED PRESCRIPTION Glucosamine - once daily SUMAtriptan (IMITREX) 50 mg tablet TAKE 1 TAB EVERY DAY NEEDED FOR MIGRAINE MAY REPEAT 2HRS/ CONTINUED MIGRAINE NO MORE THAN 2/24HRS NAPROXEN SODIUM (ALEVE ORAL) Take by mouth as needed. (Patient not taking: Reported on 10/22/2023) cyclobenzaprine (FLEXERIL) 10 mg tablet Take 1 tablet by mouth once daily as needed. (Patient not taking: Reported on 10/22/2023) cetirizine hcl(ZYRTEC 10 MG TAB) Take one(1) tablet daily. (Patient not taking: Reported on 10/22/2023) No family history on file. Social History Tobacco Use Smoking status: Never Smokeless tobacco: Never Substance Use Topics Alcohol use: Yes Comment: 1 beer every 2-3 weeks Drug use: No Review of Systems Constitutional: Negative for fever. HENT: Positive for congestion and sore throat. Negative for ear pain and nosebleeds. Respiratory: Positive for cough. Negative for shortness of breath and wheezing. Musculoskeletal: Negative for neck pain. Objective Blood pressure 132/84, pulse 70, temperature 36.8 C (98.3 F), temperature source Tympanic, resp. rate 16, weight 91.2 kg (201 lb), SpO2 100 %. Physical Exam Constitutional: General: He is not in acute distress. Appearance: He is not toxic-appearing or diaphoretic. HENT: Head: Normocephalic and atraumatic. Nose: Nose normal. Mouth/Throat: Pharynx: Uvula midline. No pharyngeal swelling, oropharyngeal exudate, posterior oropharyngeal erythema or uvula swelling. Eyes: General: Lids are normal. No scleral icterus. Right eye: No discharge. Left eye: No discharge. Conjunctiva/sclera: Conjunctivae normal. Pupils: Pupils are equal, round, and reactive to light. Neck: Trachea: Trachea normal. Cardiovascular: Rate and Rhythm: Normal rate and regular rhythm. Heart sounds: Normal heart sounds. Pulmonary: Effort: Pulmonary effort is normal. Breath sounds: Normal breath sounds. Musculoskeletal: Cervical back: Normal range of motion and neck supple. Lymphadenopathy: Cervical: No cervical adenopathy. Right cervical: No superficial cervical adenopathy. Left cervical: No superficial cervical adenopathy. Skin: Findings: No rash. Neurological: Mental Status: He is alert and oriented to person, place, and time. ASSESSMENT/PLAN: 1. Sore throat - ICD9: 462, ICD10: J02.9 - suspect viral - Group A strep molecular testing negative - Discussed supportive care treatment with fluids, rest and analgesia. - The patient should follow up in 3-5 days if symptoms persist or worsen - ALERE STREP A TEST (AG) - PREDNISONE 20 MG TABLET - LIDOCAINE HCL 2 % MUCOSAL SOLUTION Blayne Sierra APRN.CARD MAKER documented in this encounter [facility] Evaluation note Note Date & Type Note Facility documented in this encounter [facility] Summary Purpose Family History No Family History Records FoundNo Family History Records FoundNo Family History Records Found Advance Directives No Advanced Directives Records FoundNo Advanced Directives Records FoundNo Advanced Directives Records Found Additional Source Comments (unrecognized sect ion and content) No Status Records FoundNo Status Records FoundNo Status Records Found INFORMATION SOURCE (unrecogn ized section and content) DATE CREATED AUTHOR AUTHOR'S ORGANIZ ATION 12/07/2021 [facility] DATE CREATED AUTHOR AUTHOR'S ORGANIZ ATION 10/25/2023 [facility] Source Comments (unrecognize d section and content) In the event this informatio n is protected by the Federal Confidentiality of Alcohol and Drug Abuse Patient Records regulations: The Federal rules restrict any use of the information to criminally investigate or prosecute any alcohol or drug abuse patient.[facility] Reason for Visit (unrecogniz ed section and content) Care Teams (unrecognized sec tion and content) FOR RECORDS PERTAINING TO PATIENTS WHO ARE OR HAVE BEEN ENROLLED IN A CHEMICAL DEPENDENCY/SUBSTANCEABUSE PROGRAM, SOME INFORMATION MAY BE OMITTED. This clinical summary was aggregated from multiple sources. Caution should be exercised in using it in the provision of clinical care. This summary normalizes information from multiple sources, and as a consequence, information in this document may materially change the coding, format and clinical context of patient data. In addition, data may be omitted in some cases. CLINICAL DECISIONS SHOULD BE BASED ON THE PRIMARY CLINICAL RECORDS. [facility] [employer] [facility]. provides no warranty or guarantee of the accuracy or completeness of information in this document.
[2024-01-21 11:56] LABS: Absolute Lymphocyte Count 0.64 X10^3/uL (0.83-4.51); Absolute Neutrophil Count 2.7 X10^3/uL (2.0-7.7); Basophil# 0.03 X10^3/uL; Basophil% 0.8 % (0-1); Eosinophil# 0.18 X10^3/uL; Eosinophils% 4.5 % (0-5); Hematocrit 44.5 % (40-54); Hemoglobin 14.5 g/dL (13.0-16.5); Lymphocyte # 0.64 X10^3/ul (0.83-4.51); Lymphocyte % 16.2 % (19-41); Mean Corp Hgb Conc 32.6 g/dL (32-36); Mean Corpuscular Hgb 30.7 pg (27.0-32.0); Mean Corpuscular Volume 94.3 fL (80-94); Mean Platelet Vol. 10.6 fl (6.2-12.0); Monocyte# 0.37 X10^3/uL; Monocyte% 9.3 % (0-10); NRBC Flagged by Analyzer 0 % (0-5); Neutrophil # 2.73 X10^3/uL (2.7-7.7); Neutrophil % 68.9 % (47-70); Platelet Count 230 K/mm3 (150-450); RBC Distribution Width CV 12.3 % (11.6-14.6); RBC Distribution Width SD 42.7 fl (35.1-43.9); Red Blood Count 4.72 M/mm3 (4.6-6.2)
[2024-01-21 12:02] LABS: Color, Urine Yellow (Yellow); Glucose, Dipstick Normal (Normal); Ketone-Dipstick Negative (Negative); Leukocyte Esterase-Dipstick 25 /ul (Negative); Nitrite-Dipstick Negative (Negative); Occult Blood-Urine Negative /ul (Negative); Protein-Dipstick Negative (Negative); Specific Gravity, Urine 1.015 (1.002-1.030); Urine Bilirubin Dipstick Negative (Negative); Urine Clarity Sl. Cloudy (Clear); Urine Urobilinogen Normal (Normal)
[2024-01-21 12:28] LABS: ALB/GLOB Ratio 1.2 RATIO (0.9-2.4); AST(SGOT) 31 U/L (15-37); Alanine Aminotransfer ALT/SGPT 29 U/L (16-61); Albumin, Serum 3.7 g/dL (3.2-5.0); Alkaline Phosphatase 65 U/L (45-117); Anion Gap 3 (5-15); BUN 24 mg/dL (7-18); BUN/Creat Ratio 15.7 RATIO (10-20); Calcium,Total 8.9 mg/dL (8.5-10.1); Chloride 110 mmol/L (98-107); Cholesterol 170 mg/dL (200); Creatinine, Serum 1.53 mg/dL (0.70-1.30); EST Glomerular Filtration Rate 50 mL/min (>60); Est Glom Filt Rate - Afr Amer 60 mL/min (>60); Globulin 3.1 g/dL (2.2-4.2); Glucose 81 mg/dL (74-106); High Density Lipoprotein 40 mg/dL; PSA,Total - Annual Screen 2.38 ng/mL (0.00-4.00); Potassium 4.5 mmol/L (3.5-5.1); Protein, Total 6.8 g/dL (6.4-8.2); Sodium Level 140 mmol/L (136-145); Triglycerides 89 mg/dL; Very Low Density Lipoprotein 18 mg/dL (5-40)
== END | disposition home or self-care (01) ==
PROVIDERS: PCP Family Medicine; Referring Provider Family Medicine; Visit Provider Family Medicine
DX: Z00.00 Encounter for general adult medical examination without abnormal findings (principal); Z12.5 Encounter for screening for malignant neoplasm of prostate; R79.89 Other specified abnormal findings of blood chemistry; R05.9 Cough, unspecified
CPT/HCPCS: 36415; 71046; 80053; 80061; 81002; 84153; 85025; G0103

== ENCOUNTER → 2024-03-04 | Outpatient (CLI) | payer BC, SELFPAY ==
--- NOTE | 2024-03-04 09:30 | RAD_ITS ---
STUDY: X-RAY - ABDOMEN/PELVIS REASON FOR EXAM: Male, 58 years old. Calculus of kidney TECHNIQUE: Single AP view of the abdomen / pelvis. COMPARISON: None. FINDINGS: There is an unremarkable bowel gas pattern. 5 mm calcific opacity overlying the lower pole the left kidney consistent with a left renal stone. No definite ureteral stone. Normal soft tissue structures. Mild levoscoliosis lumbar spine. Status post discectomy, interbody fusion, transpedicular fixation at L5/S1. RAD/Abdomen Single View IMPRESSION: Suspect 5 mm left renal stone. Electronically Signed: Spencer Ulrich MD at 21:35 EDT ,
== END | disposition home or self-care (01) ==
LOC: RAD 09:30
PROVIDERS: PCP Family Medicine; Referring Provider Urology; Visit Provider Urology
DX: N20.0 Calculus of kidney (principal)
CPT/HCPCS: 74018

== ENCOUNTER 2024-05-26 07:53 | Outpatient (RCR) | payer BC, SELFPAY | END 2024-06-23 23:59 | LOC: NS 07:53 | PROVIDERS: PCP Family Medicine; Referring Provider Family Medicine; Visit Provider Family Medicine | DX: Z71.3 Dietary counseling and surveillance (principal); N18.31 Chronic kidney disease, stage 3a | CPT/HCPCS: 97802 ==

== ENCOUNTER → 2024-06-24 | Outpatient (CLI) | payer BC, SELFPAY ==
[2024-06-24 18:04] LABS: Anion Gap 7 (5-15); BUN 25 mg/dL (7-18); BUN/Creat Ratio 16.7 RATIO (10-20); Calcium,Total 8.5 mg/dL (8.5-10.1); Chloride 104 mmol/L (98-107); EST Glomerular Filtration Rate 51 mL/min (>60); Est Glom Filt Rate - Afr Amer 62 mL/min (>60); Glucose 70 mg/dL (74-106); Potassium 3.9 mmol/L (3.5-5.1); Sodium Level 137 mmol/L (136-145)
== END | disposition home or self-care (01) ==
PROVIDERS: PCP Family Medicine; Referring Provider Family Medicine; Visit Provider Family Medicine
DX: R79.89 Other specified abnormal findings of blood chemistry (principal)
CPT/HCPCS: 36415; 80048

== ENCOUNTER → 2024-08-19 | Outpatient (CLI) | payer BC, SELFPAY ==
--- NOTE | 2024-05-14 12:40 | RAD_ITS ---
STUDY: X-RAY - ABDOMEN/PELVIS REASON FOR EXAM: Male, 58 years old. Kidney stone TECHNIQUE: Single AP view of the abdomen / pelvis. COMPARISON: Comparison is made with prior study dated March 04, 2024. FINDINGS: Normal visualized lung bases. There is a moderate amount of colonic fecal material. Faint calcifications are seen in the lower pole calyx of the left kidney. There are calcified phleboliths in the pelvis. Prior fusion at the L5-S1 level. RAD/Abdomen Single View IMPRESSION: Stable examination. Electronically Signed: Jack Cardona MD at 12:58 EDT ,
[2024-05-14] MEDS: Lactated Ringers 1,000 ML 15 ML IV (13:13)
[2024-05-14 13:15] VITALS: BP 128/81; PULSE 47; RESP 16; TEMP 36.4; O2SAT 99; BMI 25.6
--- NOTE | 2024-05-14 13:41 | SUR.PREOP ---
pt cancelled per dr church due to passing kidney stone
== END | disposition home or self-care (01) ==
PROVIDERS: PCP Family Medicine; Referring Provider Urology; Visit Provider Urology
DX: Z53.9 Procedure and treatment not carried out, unspecified reason (principal)
CPT/HCPCS: 74018; J7120; J2405

== ENCOUNTER → 2024-12-23 | Outpatient (CLI) | payer BC, SELFPAY ==
[2024-12-23 10:57] LABS: Anion Gap 5 (5-15); BUN 22 mg/dL (7-18); BUN/Creat Ratio 14.6 RATIO (10-20); Chloride 108 mmol/L (98-107); Creatinine, Serum 1.51 mg/dL (0.70-1.30); EST Glomerular Filtration Rate 50 mL/min (>60); Est Glom Filt Rate - Afr Amer 61 mL/min (>60); Glucose 77 mg/dL (74-106); Potassium 3.9 mmol/L (3.5-5.1); Sodium Level 140 mmol/L (136-145)
== END | disposition home or self-care (01) ==
LOC: MTLAB 07:50
PROVIDERS: PCP Family Medicine; Referring Provider Family Medicine; Visit Provider Family Medicine
DX: N18.31 Chronic kidney disease, stage 3a (principal)
CPT/HCPCS: 36415; 80048

== ENCOUNTER → 2025-02-07 | Outpatient (CLI) | payer BC, SELFPAY ==
[2025-02-07 12:52] LABS: Absolute Lymphocyte Count 0.96 X10^3/uL (0.83-4.51); Absolute Neutrophil Count 2.8 X10^3/uL (2.0-7.7); Basophil# 0.06 X10^3/uL; Basophil% 1.3 % (0-1); Eosinophil# 0.15 X10^3/uL; Eosinophils% 3.3 % (0-5); Hemoglobin 15.8 g/dL (13.0-16.5); Lymphocyte # 0.96 X10^3/ul (0.83-4.51); Lymphocyte % 21.4 % (19-41); Mean Corp Hgb Conc 32.9 g/dL (32-36); Mean Corpuscular Hgb 30.9 pg (27.0-32.0); Mean Corpuscular Volume 93.9 fL (80-94); Mean Platelet Vol. 10.6 fl (6.2-12.0); Monocyte# 0.43 X10^3/uL; Monocyte% 9.6 % (0-10); NRBC Flagged by Analyzer 0 % (0-5); Neutrophil # 2.83 X10^3/uL (2.7-7.7); Neutrophil % 63.1 % (47-70); Platelet Count 242 K/mm3 (150-450); RBC Distribution Width CV 11.7 % (11.6-14.6); RBC Distribution Width SD 40.3 fl (35.1-43.9); Red Blood Count 5.11 M/mm3 (4.6-6.2); White Blood Count 4.5 K/mm3 (4.4-11.0)
[2025-02-07 14:24] LABS: ALB/GLOB Ratio 1.8 RATIO (0.9-2.4); AST(SGOT) 26 U/L (<=37); Alanine Aminotransfer ALT/SGPT 21 U/L (<=46); Albumin, Serum 4.4 g/dL (3.4-4.8); Alkaline Phosphatase 71 U/L (40-129); Anion Gap 11 (5-15); BUN 25 mg/dL (4-19); BUN/Creat Ratio 18.2 RATIO (10-20); Calcium,Total 9.4 mg/dL (7.6-11.0); Carbon Dioxide 25.1 mmol/L (21.0-32.0); Chloride 103 mmol/L (98-108); Cholesterol 195 mg/dL (<=200); Creatinine, Serum 1.37 mg/dL (0.70-1.20); EST Glomerular Filtration Rate 59 (>60); Globulin 2.5 g/dL (2.2-4.2); Glucose 81 mg/dL (70-99); High Density Lipoprotein 40 mg/dL; Low Density Lipoprotein Calc. 124 mg/dL; Potassium 4.6 mmol/L (3.3-5.1); Protein, Total 6.9 g/dL (5.9-8.4); Sodium Level 139 mmol/L (133-145); Total Bilirubin 0.35 mg/dL (0.00-1.30); Triglycerides 154 mg/dL; Very Low Density Lipoprotein 31 mg/dL (5-40); cholesterol:hdl ratio screen 4.85
[2025-02-07 20:06] LABS: Uric Acid 4.9 mg/dL (3.5-7.2)
== END | disposition home or self-care (01) ==
LOC: BFHLAB 08:52
PROVIDERS: PCP Family Medicine; Visit Provider Family Medicine
DX: Z00.00 Encounter for general adult medical examination without abnormal findings (principal); Z12.5 Encounter for screening for malignant neoplasm of prostate; M10.9 Gout, unspecified
CPT/HCPCS: 36415; 80053; 80061; 84153; 84550; 85025; G0103

== ENCOUNTER → 2025-04-25 | Outpatient (CLI) | payer BC, SELFPAY ==
--- NOTE | 2025-04-25 09:40 | ECHOD_ITS ---
Reason For Study Reason For Study: CSA Procedure This was a 2D Doppler, Color Flow transthoracic echocardiogram. Exam performed in department. Left Ventricle Normal size and thickness. Apical false tendon noted. The LV systolic function is normal. EF is 65 %. No evidence for diastolic dysfunction. Right Ventricle Normal right ventricle. A moderator band is seen in the right ventricle. Atria The left and right atria are normal. Mitral Valve Mild (1+) mitral valve insufficiency. Tricuspid Valve Trivial tricuspid valve insufficiency. Normal pulmonary artery pressure. Aortic Valve Trisinus/trileaflet aortic valve. Pulmonic Valve The pulmonic valve is not well visualized. Great Vessels Normal sized aortic root. Pericardium/Pleural No pericardial effusion. MMode/2D Measurements & Calculations LVIDd: 4.7 cm IVSd: 0.81 cm LVOT diam: 2.0 cm LVIDs: 3.6 cm LVPWd: 0.94 cm LVOT area: 3.3 cm2 RVDd: 3.9 cm FS: 23.3 % Ao root diam: 3.3 cm LAV(MOD-bp): 38.5 ml LVAd ap4: 32.1 cm2 LAV(MOD-bp) Indexed: 19.1 ml/m2 LVLd ap4: 9.7 cm LAV(MOD-sp2): 36.9 ml EDV(MOD-sp4): 87.6 ml LAV(MOD-sp4): 38.0 ml EDV(sp4-el): 89.5 ml LVAs ap4: 18.1 cm2 LVLs ap4: 8.1 cm ESV(MOD-sp4): 34.7 ml ESV(sp4-el): 34.2 ml EF(MOD-sp4): 60.4 % EF(sp4-el): 61.7 % SV(MOD-sp4): 52.9 ml SV(sp4-el): 55.2 ml LA A4 area: 15.3 cm2 SI(MOD-sp4): 26.3 ml/m2 LA dimension(2D): 3.5 cm RA A4 area: 13.8 cm2 TAPSE: 2.8 cm Time Measurements MV dec time: 0.20 sec Doppler Measurements & Calculations MV E max alpesh: 70.4 cm/sec Lat Peak E' Alpesh: 9.7 cm/sec Med Peak E' Alpesh: 10.3 cm/sec MV A max alpesh: 48.5 cm/sec E/E' lat: 7.3 E/E' med: 6.8 MV E/A: 1.5 MV V2 max: 70.1 cm/sec Ao V2 max: 97.0 cm/sec MV max P.0 mmHg MV dec slope: 349.8 cm/sec2 Ao max P.8 mmHg MV V2 mean: 39.1 cm/sec Ao V2 mean: 73.1 cm/sec MV mean P.74 mmHg Ao mean P.4 mmHg MV V2 VTI: 24.9 cm Ao V2 VTI: 24.3 cm AV (velocity ratio): 0.81 MVA(VTI): 2.6 cm2 DALTON(I,D): 2.7 cm2 DALTON(V,D): 2.7 cm2 LV V1 max: 79.7 cm/sec SV(LVOT): 64.6 ml PA V2 max: 87.7 cm/sec LV V1 max P.5 mmHg PA V2 mean: 63.0 cm/sec LV V1 mean P.5 mmHg LV V1 mean: 58.1 cm/sec LV V1 VTI: 19.7 cm ECHO/Echo Complete Interpretation Summary The LV systolic function is normal. EF is 65 %. No evidence for diastolic dysfunction. Mild (1+) mitral valve insufficiency. Ordering Physician: Abelardo Erwin V Referring Physician: Abelardo Erwin V Performed By: Sofiya Linn RCS
== END | disposition home or self-care (01) ==
LOC: CVS 09:38
PROVIDERS: PCP Family Medicine; Referring Provider Internal Medicine Pulmonary Disease; Visit Provider Internal Medicine Pulmonary Disease
DX: G47.31 Primary central sleep apnea (principal)
CPT/HCPCS: 93306

== ENCOUNTER 2025-07-20 09:31 | Outpatient (RCR) | payer BC, SELFPAY ==
[2025-07-20 13:08] LABS: Anion Gap 13 (5-15); BUN 31 mg/dL (4-19); BUN/Creat Ratio 20.9 RATIO (10-20); Calcium,Total 9.5 mg/dL (7.6-11.0); Carbon Dioxide 24.5 mmol/L (21.0-32.0); Chloride 102 mmol/L (98-108); Glucose 52 mg/dL (70-99); Potassium 4.9 mmol/L (3.3-5.1)
== END 2025-07-24 23:59 ==
LOC: BFHLAB 09:31
PROVIDERS: PCP Family Medicine; Visit Provider Family Medicine
DX: N18.31 Chronic kidney disease, stage 3a (principal)
CPT/HCPCS: 36415; 80048